=== PATIENT | male | born 1970 | race Caucasian/White ===

== ENCOUNTER 2018-02-18 21:44 | Inpatient (IN) | payer MEDICAID ==
[~2018-02-18] VITALS: Ht 167.6 cm; Wt 100.7 kg
[~2018-02-18 21:44] MED LIST: ALDACTONE25 MG PO; ANUSOL-HC25 MG RECTAL; FOLIC ACID1 MG PO; HYDROCHLOROTHIA25 M2 PO; LACTULOSE20 GM/30 M PO; LISINOPRIL/HCTZ; LISINOPRIL10 MG PO; OXYCODONE HCL 55 MG PO; OXYCONTIN10 M1 PO; PROPRANOLOL 1010 MG PO; PROTONIX40 M1 PO; UNICOMPLEX M TA1 TA1 PO; VITAMIN B-1100 M1 PO; XIFAXAN550 M1 PO
[2018-02-18 21:54] VITALS: BP 109/58
[2018-02-18 22:27] LABS: HEMOGLOBIN 11.1 gm/dL (14.0-18.0)
[2018-02-18 22:29] LABS: HEMATOCRIT 32.1 % (42.0-52.0); MCH 35.8 pg (26.0-34.0); MCHC 34.6 g/dL (28.0-37.0); MCV 103.6 fL (80.0-100.0); MPV 9.1 fl. (7.2-11.1); NUCLEATED RBCS 0 /100WBC; PLATELET COUNT* 100 thou/uL (150-400)
[2018-02-18 22:31] LABS: ANION GAP 15 mmol/L (7-16); BUN 20 mg/dL (7-18); CHLORIDE 103 mmol/L (98-107); CO2 20 mmol/L (21-32); CREATININE 1.9 mg/dL (0.6-1.3); GLUCOSE 64 mg/dL (70-99); POTASSIUM 3.6 mmol/L (3.5-5.1); SODIUM 138 mmol/L (136-145)
[2018-02-18 22:32] LABS: APTT 31.5 Seconds (25.0-31.3); INR 1.4
[2018-02-18 22:50] LABS: ALBUMIN 2.6 g/dL (3.4-5.0); ALKALINE PHOSPHATASE 137 U/L (46-116); AMMONIA 22 umol/L (11-32); CK-MB MASS < 0.5 ng/mL (<0.5-3.6); NT-PRO BRAIN NAT PEPTIDE 591 pg/mL (<300); SGOT 37 U/L (15-37); SGPT 20 U/L (30-65); TOTAL BILIRUBIN 5.5 mg/dL (<0.1-1.0); TOTAL PROTEIN 6.7 g/dL (6.4-8.2); TROPONIN-I LEVEL <0.06 ng/mL (<0.06)
[2018-02-18 23:37] LABS: ABSOLUTE LYMPHOCYTES 0.3 thou/uL (0.8-5.3); ABSOLUTE MONOCYTES 0.1 thou/uL (0.0-1.2); ABSOLUTE NEUTROPHILS 4.7 thou/uL (1.6-8.1); ANISOCYTOSIS Occasional; PLATELET ESTIMATE DECREASED
[2018-02-19] VITALS (7 sets, daily range): BP systolic 83–136; BP diastolic 38–89
[2018-02-19 00:22] LABS: URINE BLOOD 3+ (Negative); URINE CLARITY CLEAR; URINE GLUCOSE-RANDOM NEGATIVE (Negative); URINE KETONES TRACE (Negative); URINE LEUKOCYTES-REFLEX 1+ (Negative); URINE PROTEIN 2+ (Negative); URINE SPECIFIC GRAVITY >= 1.030 (1.005-1.030)
[2018-02-19 00:23] LABS: ICTOTEST (BILI CONFIRMATORY) Positive (Negative); URINE BILIRUBIN 2+ (Negative); URINE NITRITE-REFLEX POSITIVE (Negative)
[2018-02-19 00:24] LABS: URINE COLOR AMBER
[2018-02-19 00:29] LABS: BACTERIA-REFLEX >30 Many /HPF (None Seen); CELLULAR CASTS 0-3 Few /LPF (None Seen); COARSE GRANULAR CASTS 0-3 Few /LPF (None Seen); FINE GRANULAR CASTS 0-3 Few /LPF (None Seen); HYALINE CASTS 0-3 Few /LPF (None Seen); MUCUS 4-6 Moderate strn/LPF (None Seen); SQUAMOUS 0-3 Few /LPF (0-3); URINE RBC >20 Many /HPF (0-2); URINE WBC-REFLEX >25 Many /HPF (0-5); WBC CLUMPS Moderate (None Seen)
[2018-02-19 00:30] LABS: AMP/METHAMP POSITIVE (Negative); BARBITURATES Negative (Negative); BENZODIAZEPINES Negative (Negative); COCAINE Negative (Negative); CRYSTALS None Seen /LPF (None Seen); METHADONE Negative (Negative); OPIATES Negative (Negative); PCP Negative (Negative); THC POSITIVE (Negative)
--- NOTE | 2018-02-19 01:43 | NUR ---
PATIENT ARRIVED TO UNIT VIA CART TRANSFER PATIENT IS ABLE TO MUMBLE HIS NAME AND HE RESPONDS TO PAINFUL STIMULI DURING TRANSFER ASSISTANCE X 3 TO SLIDE FROM CART TO BED THE PATIENT APPEARS VERY JAUNDICED FROM HIS HEAD TO LOWER EXTREMITIES HIS RESPIRATIONS ARE SHALLOW AND RAPID 40BPM HE IS SHIVERING PROFUSLEY TEMP 101 AXIL THE PATIENT IS ABLE TO TELL THAT HE LIVES WITH FRIENDS HE IS UNABLE/UNWILLING TO RESPOND TO FURTHER QUESTIONING PATIENT APPEARS TO BE HYPERSOMNOLENT DURING ASSESSMENT ROUSED BRIEFLY AND "MUMBLED WHERE WAS HIS KEYS NEVER MIND" DR. 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 SMALL CLEAR CONTAINER HOLDING CLEAR LIQUID. PATIENT NOT ALERT NOTIFIED OF POLICY REGARDING WEAPONS, FIREARMS,AND MEDICATIONS WILL NEED REINFORCED
--- NOTE | 2018-02-19 07:01 | NUR ---
ASSUMED CARE OF PATIENT AT APPROX 0130 THE PATIENT HAS IMPROVED FROM ST AT ADMIT TO SR AT END OF SHIFT MID 90'S ON THE MONITOR O2 SAT MAINTAINED ON RA MENTAL STATUS SEEMS TO BE IMPROVED WELL RESPONDING TO QUESTIONS REGARDING ADL NEEDS IN AM SINCE ADMIT THE PATIENT HAS NOT VOIDED ATTEMPTED TO HOLD URINAL FOR PATIENT WHO DECLINED AND ASKED THAT WE TRY AGAIN LATER BEDREST CONTINUES LATIC ACID IMPROVED AT LAST DRAW NOTIFICATION SENT THIS AM DUE TO LACTIC IMPROVEMENT CRITICAL LEVEL ACKNOWLEDGED BY HOSPITALIST THE ROUTINE REGIMEN CONTINUES TO BE EFFECTIVE FOR SX MANAGEMENT SAFETY INTERVENTIONS CONTINUE BED LOWERED WHEELS LOCKED CALL LIGHT IN REACH SIDE RAILS UP ALARM ON REPORT TO BE GIVEN TO ONCOMING RN
--- NOTE | 2018-02-19 10:12 | EKG ---
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
--- NOTE | 2018-02-19 10:38 | NUR ---
INITIAL ASSESSMENT: Received referrals to evaluate pt for d/c planning needs. Reviewed chart and spoke with nurse and pt. Pt is alert and oriented. Pt is employed at [id number] in [place], and does not have insurance yet. 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 Pt said he does not have a permanent place to stay, but stays in his car, or on the job or with friends. Pt has 14 year old daughter who lives with her aunt and uncle. Pt also has 11 year old special needs daughter who is in state custody. 11 year old is diagnosed with non verbal autism. Pt said he was helping with children when they lived with their mother. Pt said he moved away from children and their mother about 2 years ago. Pt has been in drug treatment at [facility] in [place] in the past. Pt said he is trying to obtain custody of his children. Discussed drug use and pt said this is his way of coping. Pt said he can return to [facility] for further treatment, but wants to be near his children. Pt has 2 sisters who are supportive and involved. Pt said he is familiar with [employer]. Will remain available to assist as needed.
[2018-02-20] VITALS: BP 102/54
[2018-02-20 04:00] VITALS: BP 103/50
[2018-02-20 04:52] LABS: HEMATOCRIT 27.7 % (42.0-52.0); HEMOGLOBIN 9.8 gm/dL (14.0-18.0); MCH 36.4 pg (26.0-34.0); MCHC 35.3 g/dL (28.0-37.0); MCV 103.3 fL (80.0-100.0); MPV 10.4 fl. (7.2-11.1); RBC 2.68 mil/uL (4.50-6.00); RDW-CV 17.3 % (10.5-14.5); WBC 9.7 thou/uL (4.0-11.0)
[2018-02-20 05:15] LABS: ALBUMIN 1.7 g/dL (3.4-5.0); CALCIUM 7.1 mg/dL (8.5-10.1); MAGNESIUM 1.3 mg/dL (1.8-2.4); POTASSIUM 3.8 mmol/L (3.5-5.1); TOTAL BILIRUBIN 3.6 mg/dL (<0.1-1.0)
--- NOTE | 2018-02-20 06:20 | NUR ---
ASSUMED CARE OF PATIENT AT 2100 THE PATIENT HAS REMAINED ST-SR ON THE MONITOR O2 SAT MAINTAINED ON RA MENTAL STATUS IMPROVED SINCE PRIOR SHIFT ALERT AND ORIENTED HOWEVER NOTINTERRUPTED THOUGHT PROCESS SCATTERED THOUGHTS VOID X 1 THIS SHIFT THE PATIENT IS VERY OLIGURIC WITH 200ML DARK URINE DURING SHIFT FLUIDS CONTINUE TO INFUSE ORDERED REGIMEN CONTINUES TO BE EFFECTIVE FOR SX MANAGEMENT DENIES ACUTE DISTRESS SAFETY INTERVENTIONS CONTINUE BED LOWERED WHEELS LOCKED CALL LIGHT IN REACH SIDE RAILS UP ALARM ON REPORT TO BE GIVEN TO ONCOMING RN
[2018-02-20 07:45] VITALS: BP 100/50
--- NOTE | 2018-02-20 09:07 | NUR ---
RECEIVED REPORT AND ASSUMED CARE AT 0730. ELEVATED TEMP OTHERWISE VSS. CARDIAC MONITORING IN PLACE. PT REPORTS PAIN IN HIS BACK AND LEGS. HELPED REPOSITION PT. PT STATED IT HELPED. ASSESSMENT COMPELTED CHARTED. PT UP WITH ASSIT X1. PT ON RA. BED IN LOWEST POSITION, CALL LIGHT WITHIN REACH. BED ALARM ON. WILL CONTINUE TO MONITOR FOR THE REMAINDER OF THE SHIFT
[2018-02-20 11:35] VITALS: BP 107/49
--- NOTE | 2018-02-20 16:59 | NUR ---
PT SCHEDULED FOR MRI OF THE HEAD AND BILATERAL VENOUS US OF LE. BOTH COMPLETED ON THIS SHIFT. VSS. CARDIAC MONITORING IN PLACE. PT SCHEDULED FOR ABD US 02/21/18, WILL BE NPO AT MIDNIGHT. REPLACING PT MAGNESIUM, DISCUSSED PLAN OF CARE WITH PT. PT VERBALIZED UNDERSTANDING. PT UP WITH ASSIST X1, USES URINAL IN ROOM. PT ON RA. BED IN LOWEST POSITION, BED ALARM ON, CALL LIGHT WITHIN REACH. PT VERY DROWSY ON THIS SHIFT, SLEPT 90% OF THE TIME. WAS ABLE TO WAKE UP AND ANSWER QUESTIONS THROUGHOUT SHIFT. WILL CONTINUE TO MONITOR FOR THE REMAINDER OF THE SHIFT
[2018-02-20 20:00] VITALS: BP 105/54
[2018-02-20 23:53] VITALS: BP 118/60; BP 94/46
[2018-02-21 04:22] VITALS: BP 108/51
[2018-02-21 04:41] LABS: HEMATOCRIT 28.3 % (42.0-52.0); HEMOGLOBIN 9.6 gm/dL (14.0-18.0); MCH 34.9 pg (26.0-34.0); MCV 102.7 fL (80.0-100.0); MPV 10.8 fl. (7.2-11.1); RBC 2.76 mil/uL (4.50-6.00); RDW-CV 17.3 % (10.5-14.5); WBC 11.9 thou/uL (4.0-11.0)
[2018-02-21 04:47] LABS: INR 1.6; PROTIME 15.5 Seconds (9.20-11.50)
[2018-02-21 05:57] LABS: ALBUMIN 1.6 g/dL (3.4-5.0); CALCIUM 7.3 mg/dL (8.5-10.1); CREATININE 2.1 mg/dL (0.6-1.3); POTASSIUM 3.6 mmol/L (3.5-5.1); TOTAL BILIRUBIN 4.1 mg/dL (<0.1-1.0); TOTAL PROTEIN 5.1 g/dL (6.4-8.2)
--- NOTE | 2018-02-21 06:08 | NUR ---
NPO SINCE MN FOR ABD US.
[2018-02-21 08:00] VITALS: BP 119/49
[2018-02-21 12:00] VITALS: BP 105/63
--- NOTE | 2018-02-21 15:56 | NUR ---
WOUND NURSE: PATIENT SEEN TO ADDRESS LESION ON THE BALL OF HIS RIGHT FOOT. THIS PRESENTS A SMALL LINEAR BULLA MEASURING 1.5 X 3.0 X 0.1 CM. THERE IS A SMALL AMOUNT OF SEROUS DRAINAGE NOTED. THERE IS NO PERIWOUND REDNESS, WARMTH, OR INDURATION APPARENT AT TIME OF THIS ASSESSMENT. CLEANSED WITH SOAP AND WATER, RINSED WITH WATER, THEN PATTED DRY. APPLIED SKIN PREP TO INTACT PERIWOUND TISSUE, THEN APPLIED AQUACEL AG TO THE WOUND, THEN COVERED WITH A BORDERED FOAM DRESSING. PLAN IS TO CHANGE DRESSING 3X/WEEK AND NEEDED. PATIENT INSTRUCTED ON MEASURES TO PROMOTE HEALING AND PREVENT FURTHER COMPLICATIONS. PATIENT STATED HE UNDERSTOOD.
[2018-02-21 16:00] VITALS: BP 110/69
--- NOTE | 2018-02-21 16:57 | NUR ---
PT RESTING IN BED AND IN CHAIR MOST OF SHIFT. IV ABX INFUSING. PT REPORTS PAIN FROM SCROTAL AND LEG EDEMA. PT CALM AND COOPERATIVE. POOR APPETITE.
[2018-02-21 20:00] VITALS: BP 131/77
[2018-02-21 23:19] VITALS: BP 124/76
[2018-02-22 04:24] VITALS: BP 127/75
--- NOTE | 2018-02-22 04:57 | NUR ---
PT CARE ASSUMED AFTER REPORT. ASSESSMENT COMPLETE. PRN PAIN MEDICATION GIVEN PER PT REQUEST. IVF INFUSING. UP WITH STB ASSIST TO BSC. FALL PRECAUTIONS IN PLACE INCLUDING BED ALARM. CONTINUED SIGNIFICANT BLE AND SCROTAL EDEMA. FORGETFUL WITH CONFUSION AT TIMES. SLOW TO PROGRESS TOWARDS GOALS.
[2018-02-22 07:06] LABS: HEPATITIS B SURFACE AG Negative (Negative)
[2018-02-22 08:26] VITALS: BP 119/68
--- NOTE | 2018-02-22 12:18 | NUR ---
CONTINUE TO FOLLOW, RECEIVED CALL FROM PT'S SISTER/SKYE [phone] INQUIRING ABOUT ASSISTED LIVING OR LTC FOR PT. TRIED TO CALL HER BACK BUT HAD TO LEAVE MESSAGE. MET WITH PT, HE KEPT HIS EYES CLOSED DURING CONVERSATION BUT DID ANSWER QUESTIONS. ASKED ABOUT HELP WITH DC PLAN. HE IS CURRENTLY LIVING IN HIS CAR AND STATES HAS NO FINANCES. HE IS AGREEABLE TO MEET WITH [employer] TO APPLY FOR MEDICAID, CALL TO AUBREE/[facility], SHE WILL COME TO HOSPITAL TO MEET WITH PT. PT HAS BEEN TO [facility] BEFORE. DID NOT KNOW IF HE COULD STAY WITH FAMILY. HE TALKED ABOUT TRYING TO GET HIS AUTISTIC DTR BACK 'UNDER MY WING'. STRESSED TO PT THAT HE WOULD NEED TO BE ABLE TO MANAGE HIS OWN AFFAIRS AND CARE FOR SELF 1ST. TALKED WITH DR MARX, REC: SOME TYPE OF PLACEMENT. WILL AWAIT SISTER'S CALL BACK. PT IS REQUIRING ASSIST WITH ALL ADLS AT THIS TIME
[2018-02-22 12:27] VITALS: BP 122/68
[2018-02-22 13:45] LABS: HEMATOCRIT 33.1 % (42.0-52.0); HEMOGLOBIN 11.2 gm/dL (14.0-18.0); MCH 34.6 pg (26.0-34.0); MCHC 33.8 g/dL (28.0-37.0); MCV 102.6 fL (80.0-100.0); MPV 10.1 fl. (7.2-11.1); NUCLEATED RBCS 0 /100WBC; PLATELET COUNT* 88 thou/uL (150-400); RBC 3.23 mil/uL (4.50-6.00); WBC 11.9 thou/uL (4.0-11.0)
[2018-02-22 13:55] LABS: INR 1.5; PROTIME 14.9 Seconds (9.20-11.50)
[2018-02-22 13:56] LABS: ALBUMIN 1.8 g/dL (3.4-5.0); CALCIUM 8.1 mg/dL (8.5-10.1); CREATININE 1.6 mg/dL (0.6-1.3); POTASSIUM 3.9 mmol/L (3.5-5.1); TOTAL PROTEIN 5.7 g/dL (6.4-8.2)
--- NOTE | 2018-02-22 14:20 | NUR ---
SPOKE WITH PT'S SISTER SKYE WITH PT'S PERMISSION. DISCUSSED POC AND PROBABLE NEED FOR LTC. SHE STATED THAT PT WAS NOT ABLE TO LIVE WITH HER OR THEIR SISTER. SHE WOULD LIKE CM TO LOOK FOR FACILITY. DISCUSSED OPTIONS. SHE LIVES IN [place] AND IS FAMILIAR WITH IT WELL DOWLING IN [facility]. WOULD LIKE THOSE CHECKED. DISCUSSED AGAIN WITH PT, HE IS IN AGREEMENT WITH THAT PLAN ALSO. CALLED AND FAXED REFERRALS TO ALL 3 FACILITIES. AUBREE FROM [employer] HERE AND WAS ABLE TO GET PERMISSION TO ASSIST PT WITH MEDICAID [place]. GAVE HER H/P AND PROGRESS NOTE INFO FOR APPLICATION. WILL FOLLOW
[2018-02-22 14:23] LABS: ABSOLUTE BASOPHILS 0.5 thou/uL (0.0-0.2); ABSOLUTE EOSINOPHILS 0.4 thou/uL (0.0-0.7); ABSOLUTE LYMPHOCYTES 1.3 thou/uL (0.8-5.3); ABSOLUTE MONOCYTES 1.9 thou/uL (0.0-1.2); ABSOLUTE NEUTROPHILS 7.9 thou/uL (1.6-8.1); ATYPICAL LYMPHS 2 %
[2018-02-22 14:29] LABS: PLATELET ESTIMATE ADEQUATE
--- NOTE | 2018-02-22 14:49 | NUR ---
RECEIVED REPORT AND ASSUMED CARE AT 0730. VSS. PT M/S STATUS. PT REPORTS PAIN IN SCROTUM AND LE, REPOSITIONED AND OFFLOADED. PT VERBALIZED INTEREST IN SPEAKING WITH CM, CM AWARE. PT ON RA, UP WITH 1 ASSIST TO BSC, ALSO USES URINAL. ASSESSMENT COMPLETED CHARTED. DISCUSSED PLAN OF CARE WITH PT. VERBALIZED UNDERSTANDING. DISCUSSED LAB RESULTS WITH PHYSICIAN. PHYSICIAN WILL REVEIW. BED IN LOWEST POSITION. CALL LIGHT WITHIN REACH. BED ALARM ON. WILL CONTINUE TO MONITOR FOR REMAINDER OF THE SHIFT
--- NOTE | 2018-02-22 18:00 | NUR ---
PT RESTING IN BED. VSS. PT ON RA, PT PRESENTING SOME JAUNDICE. PHYSICAN AWARE. PT UP SBA TO BATHROOM OR USES URINAL. PT DROWSY MOST OF THE DAY. HOURLY ROUNDING COMPLETED AND ALL NEEDS MET. CM IN CONTACT WITH REP TO ASSIST WITH MEDICAID APPLICATION TO ASSIST WITH FURTHER PLACEMENT OPTIONS. BED IN LOWEST POSITION, CALL LIGHT WITHIN REACH, BED ALARM ON. WILL CONTINUE TO MONITOR FOR REMAINDER OF THE SHIFT
[2018-02-22 20:00] VITALS: BP 137/77
[2018-02-22 23:35] VITALS: BP 120/70
--- NOTE | 2018-02-23 05:28 | NUR ---
PT CARE ASSUMED AFTER REPORT. ASSESSMENT COMPLETE. UP WITH ASSIST TO BATHROOM. FALL PRECAUTIONS IN PLACE INCLUDING BED ALARM. PT CONFUSED, FORGETFUL, AND EASILY IRRITATED. DENIES NEED FOR PAIN MEDICATION. CONTINUED EDEMA TO BLE AND SCROTUM. CALL LIGHT IN REACH. BED IN LOWEST POSITION. SLOW TO PROGRESS TOWARDS GOALS.
[2018-02-23 05:45] LABS: INR 1.6; PROTIME 15.5 Seconds (9.20-11.50)
[2018-02-23 05:50] LABS: ALBUMIN 1.4 g/dL (3.4-5.0); CREATININE 1.4 mg/dL (0.6-1.3); POTASSIUM 3.5 mmol/L (3.5-5.1); TOTAL BILIRUBIN 6.9 mg/dL (<0.1-1.0); TOTAL PROTEIN 5.1 g/dL (6.4-8.2)
[2018-02-23 05:51] LABS: HEMATOCRIT 30.2 % (42.0-52.0); HEMOGLOBIN 10.5 gm/dL (14.0-18.0); MCH 34.8 pg (26.0-34.0); MCHC 34.8 g/dL (28.0-37.0); MCV 99.9 fL (80.0-100.0); MPV 10.4 fl. (7.2-11.1); RBC 3.02 mil/uL (4.50-6.00); WBC 11.5 thou/uL (4.0-11.0)
--- NOTE | 2018-02-23 06:48 | NUR ---
PT REFUSED AM LACTULOSE D/T INCONT OF STOOL THIS AM.
[2018-02-23 07:52] VITALS: BP 132/69
--- NOTE | 2018-02-23 09:15 | NUR ---
RECEIVED WRITTEN REPORT AND ASSUMED CARE AT 0800. VSS. PT REPORTS PAIN IN SCROTUM AND RLE. REPOSITIONED PT OFFERED PRN MEDICATION, PT REFUSED PRN MEDICATION. ASSESSMENT COMPELTED CHARTED. PT UP WITH ASSIST X1 IN ROOM. PT ON RA. PT DROWSY, WILL ANSWER MOST QUESTIONS. NEEDS REINFORCEMENT TO AWAKEN TO RESPOND. DISCUSSED PLAN OF CARE WITH PT, VERBALIZED UNDERSTANDING. PT RLE RED, HOT, FIRM, WEEPING. ELEVATED PT LEGS. BED IN LOWEST POSITION, CALL LIGHT WITHIN REACH, BED ALARM ON. WILL CONTINUE TO MONITOR FOR THE REMAINDER OF THE SHIFT
--- NOTE | 2018-02-23 09:37 | NUR ---
JULIO CÉSAR left message for Alena rocha [facility] to see if they are able to accept Pt for LTC. Following.
--- NOTE | 2018-02-23 13:37 | NUR ---
[facility] ronna pending as of 02/22/18
--- NOTE | 2018-02-23 14:35 | NUR ---
CM was asked to call Pt's sister, Kassi, Cm left . Waiting decision from either [facility] or [facility] to accept. Following.
--- NOTE | 2018-02-23 15:12 | NUR ---
Spoke with Maureen from [facility], they are unable to accept Pt for LTC. Alena laureano [facility] is still to come today and eval Pt.
--- NOTE | 2018-02-23 16:18 | NUR ---
PT IN BED RESTING. VSS. [facility] PT ON RA, UP SBA. PT WORKED WITH OT TODAY. PT REFUSED TO WORK WITH PHYS THEREAPY. HOURLY ROUNDING COMPLETED AND ALL NEEDS MET. DISCUSSED TRANSFER WITH PT, VERBALIZED UNDERSTANDING. PT SISTER AWARE OF MOVING TO 309. NURSING WILL CONTINUE TO MONITOR.
--- NOTE | 2018-02-23 18:15 | NUR ---
ASSUMED CARE OF PATIENT AT 1625. REPORT RECEIVED FROM JERMAINE SANDERS. PATIENT DENIES ANY PAIN AT THIS TIME. PATIENT HAS SLEPT SINCE ARRIVING TO UNIT. PATIENT IS EASILY ROUSED FROM SLEEP AND IS ORIENTED. PATIENT DENIES ANY NEEDS AT THIS TIME. CALL LIGHT WITHIN REACH. WILL CONTINUE TO MONITOR.
[2018-02-23 23:55] VITALS: BP 115/53
[2018-02-24 04:34] LABS: HEMATOCRIT 31.4 % (42.0-52.0); HEMOGLOBIN 10.8 gm/dL (14.0-18.0); MCH 34.6 pg (26.0-34.0); MCHC 34.6 g/dL (28.0-37.0); MCV 100.2 fL (80.0-100.0); MPV 10.4 fl. (7.2-11.1); RBC 3.13 mil/uL (4.50-6.00); RDW-CV 16.8 % (10.5-14.5); WBC 13.3 thou/uL (4.0-11.0)
[2018-02-24 04:40] LABS: INR 1.6; PROTIME 15.1 Seconds (9.20-11.50)
[2018-02-24 04:55] LABS: ALBUMIN 1.4 g/dL (3.4-5.0); CREATININE 1.4 mg/dL (0.6-1.3); POTASSIUM 3.6 mmol/L (3.5-5.1); TOTAL BILIRUBIN 7.5 mg/dL (<0.1-1.0)
[2018-02-24 07:55] VITALS: BP 131/59
--- NOTE | 2018-02-24 12:30 | NUR ---
CONTINUE TO FOLLOW, MET WITH DR MARX WITH PT AND 2 SISTER/BALJIT AND SKYE. DISCUSSED PT'S PROGNOSIS AND PLAN, RECOMMENED LTC. ALL IN AGREEMENT. HE ALSO DISCUSSED POSSIBLE HOSPICE IN THE FUTURE. PER DR MARX, PT NOT TRANPLANT CANDIDATE. [facility] TO [facility]AL PT. SHE CALLED BACK LATER STATING THEY WILL ACCEPT PT AT DC. SHE ASKED THAT PT'S SISTER COME TO THE FACILITY TO MEET WITH THEIR BUSINESS OFFICE BY 230PM TODAY. SKYE STATED SHE COULD DO THAT. ALSO GAVE SKYE NUMBER AND CONTACT FOR AUBREE AT [facility] THAT IS ASSISTING WITH MEDICAID [place]. ANTICIPATE DC WEDNESDAY PER DR MARX
[2018-02-24 15:34] VITALS: BP 130/58
--- NOTE | 2018-02-24 15:42 | NUR ---
WOUND CARE NOTE: ATTEMPTED TO SEE PATIENT TO ASSESS FOR COMPRESSION, BUT PATIENT IS SLEEPING AT THIS TIME. WILL ATTEMPT TO REASSESS TOMORROW.
--- NOTE | 2018-02-24 17:24 | NUR ---
PATIENT RESTING IN BED. PATIENT IS UP STANDBY ASSIST. PATIENT HAS BEEN UP TO CHAIR THIS AFTERNOON. PATIENT HAS BLE EDEMA, WORSE ON RIGHT. TUBIGRIP SINGLE LAYER PLACED TO RIGHT LEG PER DR TIM. PATIENT HAS FAIR APPETITE. PATIENT DENIES ANY NEEDS AT THIS TIME. CALL LIGHT WITHIN REACH. WILL CONTINUE TO MONITOR.
[2018-02-24 20:40] VITALS: BP 137/73
--- NOTE | 2018-02-24 20:40 | NUR ---
NURSE WENT AND ASSESSED PT. PT ALERT AND ORIENTED X4. ASSESSMENT DOCUMENTED. PT REFUSED ALL MEDICATION STATING THAT ALL THE MEDICINE MAKES HIM FEEL WORSE. EDUCATED PT ON RISKS OF DC'ING MEDICATION. PT STATED UNDERSTANDING. PT COMPLAINED OF PAIN AT THIS TIME WELL BUT IS ALSO REFUSING PAIN MEDICATIONS. PT ALSO STATED THAT HE NO LONGER WANTS TO EAT UNTIL HIS BLOATING AND HEARTBURN IS RESOLVED. PT STATED HE DID NOT WANT TO TAKE ANY MEDICATIONS FOR EITHER AT THIS TIME. PT REFUSING ASSISTANCE TO AND FROM BATHROOM WELL. WILL CONTINUE WITH HOURLY ROUNDINGS AND RE-EVALUATE IF PT WILL TAKE MEDICATIONS LATER.
--- NOTE | 2018-02-25 05:17 | NUR ---
PT SLEPT ON AND OFF THIS SHIFT. ASSESSMENT DOCUMENTED. PT STILL REFUSING MEDICATIONS AT THIS TIME, WILL ASK PT IF HE WOULD LIKE TO TAKE AM MEDICATIONS. PT TOOK PAIN MEDS ONCE THIS SHIFT DUE TO SCROTAL PAIN. WILL CONTINUE WITH PLAN OF CARE.
--- NOTE | 2018-02-25 06:43 | NUR ---
PT STILL REFUSING ALL MEDICATIONS. PT STATES HE WANTS TO TALK TO A DOCTOR BEFORE HE TAKES ANYTHING ELSE. HE STATES THAT HE FEELS LIKE THE MEDICATIONS ARE NOT DOING HIM ANY GOOD AND IS AFRAID THAT THEY ARE CAUSING HIS BLOATING. WILL INFORM ONCOMING NURSE.
[2018-02-25 08:55] VITALS: BP 137/78
--- NOTE | 2018-02-25 10:22 | NUR ---
WOUND NURSE: PATIENT WITH PERIPHERAL EDEMA AND PHYSICIAN REQUEST FOR COMPRESSION. LEG GIRTH MEASUREMENTS FOLLOWS: RT: 23.5 FOREFOOT, 21.0 ANKLE, 40.0 CM CALF; LT: 27.0 FOREFOOT, 25.5 ANKLE, 40.0 CALF. PATIENT WITH 2 TO 3 + PITTING EDEMA IN BLE. APPLIED SINGLE LAYER SIZE F TUBIGRIPS TOES TO KNEE BLE. PATIENT WITH HEALING BULLA ON THE BALL OF THE RIGHT FOOT, NOW MEASURES 1.5 X 0.3 X 0.1 CM. PRESENTS A SHALLOW EROSION WITH THIN DRY REDDISH BROWN SCAB IN PLACE, NO DRAINAGE. PERIWOUND TISSUE IS NORMAL. CLEANSED WITH SAOP AND WATER, RINSED WITH WATER, THEN PATTED DRY. APPLIED SKIN PREP TO INTACT PERIWOUND TISSUE, THEN COVERED WITH AQUACEL AG UNDER BORDERED FOAM. PROCEDURE WAS TOLERATED WELL.
--- NOTE | 2018-02-25 14:56 | NUR ---
JULIO CÉSAR SPOKE TO ALIYA FROM [facility]. ALIYA HERE AT THE HOSPITAL AND SPOKE TO PATIENT AND FAMILY. ALIYA INFORMS THAT [facility] IS ABLE TO ACCEPT THE PATIENT AT D/C. JULIO CÉSAR SPOKE TO DR MARX AND HE INFORMS THAT THE PLAN IS FOR THE PATIENT TO REMAIN INPATIENT OVER THE WEEKEND AND D/C TO [facility] ON WEDNESDAY. PATIENT AND FAMILY IN AGREEMENT. CM WILL REMAIN AVAILABLE TO ASSSIST AND FOLLOW NEEDED.
[2018-02-25 15:35] VITALS: BP 114/62
--- NOTE | 2018-02-25 19:52 | NUR ---
PATIENT RESTING IN BED. PATIENT HAS HAD COMPLAITS OF SCROTAL PAIN, TREATED ADEQUATELY WITH TRAMADOL. PATIENT IS UP STANDBY ASSIST. PATIENT REFUSES LACTULOSE. PATIENT REFUSED IV ANTIBIOTICS THIS AM, CHANGED TO ORAL BY DR TIM. PATIENT HAD SHOWER THIS EVENING WITHOUT INCIDENT. PATIENT HAS POOR APPETITE, SNACKS AND ENSURE AT BEDSIDE. PATIENT DENIES ANY NEEDS AT THIS TIME. CALL LIGHT WITHIN REACH. WILL CONTINUE TO MONITOR.
[2018-02-25 20:00] VITALS: BP 136/70
[2018-02-26] VITALS: BP 126/65
[2018-02-26 04:00] VITALS: BP 130/64
[2018-02-26 04:39] LABS: HEMATOCRIT 31.2 % (42.0-52.0); HEMOGLOBIN 10.8 gm/dL (14.0-18.0); MCH 34.9 pg (26.0-34.0); MCHC 34.5 g/dL (28.0-37.0); MCV 101.3 fL (80.0-100.0); MPV 9.8 fl. (7.2-11.1); RBC 3.08 mil/uL (4.50-6.00); RDW-CV 16.3 % (10.5-14.5); WBC 17.1 thou/uL (4.0-11.0)
[2018-02-26 04:46] LABS: INR 1.5; PROTIME 14.4 Seconds (9.20-11.50)
--- NOTE | 2018-02-26 05:17 | NUR ---
PT SLEPT SOUNDLY DURING THE NIGHT, IV SALINE LOCKED, ROOM AIR, PLEASANT, UP SBA TO THE BATHROOM, REFUSED LACTULOSE AGAIN TONIGHT, CALL LIGHT IN REACH, BED ALARM ON FOR SAFETY, WILL CONTINUE TO MONITOR
[2018-02-26 05:43] LABS: ALBUMIN 1.6 g/dL (3.4-5.0); CALCIUM 8.8 mg/dL (8.5-10.1); CREATININE 1.2 mg/dL (0.6-1.3); POTASSIUM 3.8 mmol/L (3.5-5.1); TOTAL BILIRUBIN 4.9 mg/dL (<0.1-1.0); TOTAL PROTEIN 5.8 g/dL (6.4-8.2)
[2018-02-26 09:45] VITALS: BP 131/68
[2018-02-26 16:00] VITALS: BP 145/67
[2018-02-26 20:00] VITALS: BP 135/66
--- NOTE | 2018-02-27 04:56 | NUR ---
PT SLEPT AT INTERVALS DURING THE NIGHT, IV SALINE LOCKED, UP SBA TO THE BATHROOM, PLEASANT, CALL LIGHT IN REACH, BED ALARM ON FOR SAFETY, WILL CONTINUE TO MONITOR
[2018-02-27 09:15] VITALS: BP 130/54
--- NOTE | 2018-02-27 16:07 | NUR ---
PATIENT SLEEPING OFF AND ON THIS SHIFT. PATIENT UP AND AMBULATING WITH STAFF AROUND THE ROOM. PATIENT HAVING LOOSE BM'S, DR. MARX NOTIFIED THAT STOOL THIS EVENING NOTED TO HAVE BLOOD IN IT. NO NEW ORDERS AT THIS TIME, AWAITING DR. MARX TO ROUND. PATIENT HOPING TO DISCHARGE TO [facility] TOMORROW.
[2018-02-27 16:24] VITALS: BP 139/67
[2018-02-27 19:45] VITALS: BP 141/73
[2018-02-28 04:32] LABS: HEMATOCRIT 29.2 % (42.0-52.0); HEMOGLOBIN 10.1 gm/dL (14.0-18.0); MCH 35.6 pg (26.0-34.0); MCHC 34.6 g/dL (28.0-37.0); MCV 102.9 fL (80.0-100.0); MPV 9.6 fl. (7.2-11.1); RBC 2.84 mil/uL (4.50-6.00); RDW-CV 16.7 % (10.5-14.5); WBC 14.9 thou/uL (4.0-11.0)
[2018-02-28 04:38] LABS: INR 1.5; PROTIME 14.1 Seconds (9.20-11.50)
[2018-02-28 04:53] LABS: ALBUMIN 1.6 g/dL (3.4-5.0); CALCIUM 8.2 mg/dL (8.5-10.1); CREATININE 1.2 mg/dL (0.6-1.3); MAGNESIUM 1.7 mg/dL (1.8-2.4); POTASSIUM 3.5 mmol/L (3.5-5.1); TOTAL BILIRUBIN 3.7 mg/dL (<0.1-1.0); TOTAL PROTEIN 5.7 g/dL (6.4-8.2)
--- NOTE | 2018-02-28 05:45 | NUR ---
PT SLEPT WELL OVERNIGHT WITHOUT COMPLAINTS. TUBIGRIPS REMOVED AT HS, BLE RED, DRSG TO R FOOT CDI. UP TO BR WITH SBA, USES CALL LITE TO ASK FOR ASSISTANCE. JAUNDICED. AM LABS DRAWN. BED ALARM ON OVERNIGHT FOR SAFETY, USING CALL LITE APPROPRIATELY FOR ASSISTANCE TO BATHROOM. R HAND SL. ABX GIVEN ORDERED. ANTICIPATING DC TO FACILITY TODAY FOR REHAB. CALL LITE IN EASY REACH.
[2018-02-28 08:00] VITALS: BP 129/64
[2018-02-28] MEDS ORDERED: AUGMENTIN 875-1 EACH PO (13:23)
[2018-02-28] MEDS ORDERED: PENTOXIFYLLINE400 MG PO (14:42)
[2018-02-28 14:43] VITALS: BP 129/64
[2018-02-28] MEDS ORDERED: ALDACTONE50 MG PO (14:43)
--- NOTE | 2018-02-28 15:46 | NUR ---
Pt to dc to [facility] today. PAPI spoke with admissions at [facility] [phone] and transportation arranged for 16:00. PAPI faxed final orders and med list to [phone]. PAPI called and left message for pt sister that pt would be dc to LTC today.
--- NOTE | 2018-02-28 16:13 | NUR ---
REPORT CALLED TO EFREM AT [facility]. PT TRANSPORTED VIA WITH ALL BELONGINGS
== END 2018-02-28 16:00 | DRG 871 ==
LOC: M.ERS 21:44 → M.TBA-ER 23:13 → M.2W 23:13 → M.3W 02-23 16:23
PROVIDERS: Emergency Medicine Emergency Medical Services; Family Medicine; Internal Medicine; ADMIT Internal Medicine
DX: A40.9 Streptococcal sepsis, unspecified (principal); J18.9 Pneumonia, unspecified organism; G93.41 Metabolic encephalopathy; L03.115 Cellulitis of right lower limb; E87.2 Acidosis; N17.9 Acute kidney failure, unspecified; I10 Essential (primary) hypertension; K70.30 Alcoholic cirrhosis of liver without ascites; F10.20 Alcohol dependence, uncomplicated; F19.10 Other psychoactive substance abuse, uncomplicated; I88.9 Nonspecific lymphadenitis, unspecified; N30.90 Cystitis, unspecified without hematuria; D69.6 Thrombocytopenia, unspecified; Z79.899 Other long term (current) drug therapy